=== PATIENT | female | born 1995 | race African-American/Black ===

== ENCOUNTER 2016-10-14 23:07 | Emergency (ER) | payer BC ==
[~2016-10-14] VITALS: Ht 160 cm; Wt 85.7 kg
--- NOTE | ~2016-10-14 | EKG ---
[address] [address] ELECTROCARDIOGRAM REPORT Name: ROACHAYADStiven Room #: [facility]P [facility]ENTERJenny#: [id number] Admission: 10/14/16 Attend Phys: Discharge: 10/15/16 Date of : [birth year] Report #: [id number] THIS REPORT FOR: //name// [facility] ED Test Date: 2016-10-14 Test Time: 23:23:59 Pat Name: BRUCE NEW Department: Room: Gender: F Rn [facility]: [place] : 1995 Requested By: Bernie Chance Order Number: [id number] MD: Edwin Knutson Measurements Intervals Evans Rate: 90 P: 70 AK: 133 QRS: 17 QRSD: 73 T: 30 QT: 348 QTc: 426 Interpretive Statements Sinus rhythm No significant abnormality. No previous ECG available for comparison Electronically Signed On 10-15-2016 8:14:41 CDT by Edwin Knutson [email or web address] <ELECTRONICALLY SIGNED> By: Edwin Knutson MD, [facility] 10/15/16 0814 [id number] Edwin Knutson MD, FACC /EPI
[2016-10-14 23:23] LABS: ABSOLUTE NEUTROPHILS 5.7 thou/uL (1.4-8.2); BASOPHILS 0.6 % (0.0-2.0); HEMOGLOBIN 14.9 gm/dL (12.0-15.0); LYMPHOCYTES 31.9 % (24.0-44.0); MCH 30.5 pg (26.0-34.0); MCHC 34.7 g/dL (28.0-37.0); MCV 87.8 fL (80.0-100.0); MONOCYTES 5.4 % (1.0-8.0); PLATELET COUNT 249 thou/uL (150-400); POLYS 60.1 % (36.0-66.0); RDW 12.6 % (10.5-14.5); WBC 9.5 thou/uL (4.0-11.0)
[2016-10-14 23:27] LABS: CALCIUM 8.4 mg/dL (8.5-10.1); CREATININE 0.9 mg/dL (0.6-1.0); POTASSIUM 3.9 mmol/L (3.5-5.1)
[2016-10-14 23:30] LABS: URINE BILIRUBIN NEGATIVE (Negative); URINE BLOOD TRACE (Negative); URINE COLOR YELLOW; URINE GLUCOSE-RANDOM* NEGATIVE (Negative); URINE KETONES NEGATIVE (Negative); URINE LEUKOCYTES-REFLEX NEGATIVE (Negative); URINE PROTEIN (DIPSTICK) NEGATIVE (Negative); URINE SPECIFIC GRAVITY 1.025 (1.003-1.035); URINE UROBILINOGEN 0.2 E.U./dl (0.2-1.0)
[2016-10-14 23:31] LABS: ALBUMIN 3.6 g/dL (3.4-5.0); DIRECT BILIRUBIN 0.2 mg/dL (<0.1-0.3); TOTAL BILIRUBIN 1.3 mg/dL (<0.1-1.0); TOTAL PROTEIN 6.5 g/dL (6.4-8.2)
[2016-10-14 23:34] LABS: MANUAL DIFF NO
[2016-10-15] MEDS ORDERED: NORCO 5-325 TA1 EACH PO (01:32)
[2016-10-15 01:45] VITALS: BP 96/57
== END 2016-10-15 01:47 | disposition home or self-care (01) ==
LOC: ER 23:07
PROVIDERS: Emergency Medicine
DX: R10.84 Generalized abdominal pain (principal); R55 Syncope and collapse